=== PATIENT | male | born 1990 | race African-American/Black ===

== ENCOUNTER 2020-03-16 03:45 | Emergency (ER) | payer MEDICAID ==
[~2020-03-16] VITALS: Ht 165.1 cm; Wt 64.0 kg
[2020-03-16] MEDS ORDERED: KETOROLAC 60MG/2ML VIAL IM ONE (04:45)
[2020-03-16] MEDS ORDERED: SODIUM CHLORIDE 0.9% 1,000 ML IV ONE (05:39)
[2020-03-16] MEDS ORDERED: MORPHINE SULFATE 4 MG/ML CPJ (NOT FOR IM USE) IV SCH (05:39)
[2020-03-16] MEDS ORDERED: ONDANSETRON HCL 4MG/2ML INJ IV SCH (05:39)
[2020-03-16] MEDS ORDERED: MORPHINE SULFATE 4 MG/ML CPJ (NOT FOR IM USE) IV ONE (06:15)
[2020-03-16 09:45] VITALS: BP 125/65
== END 2020-03-16 10:04 | disposition home or self-care (01) ==
LOC: ER 03:45
DX: S82.142A Displaced bicondylar fracture of left tibia, initial encounter for closed fracture (principal); W17.89XA Other fall from one level to another, initial encounter; Y93.89 Activity, other specified; Y92.89 Other specified places as the place of occurrence of the external cause
CPT/HCPCS: 29505; 73562; 96372; 99285; J1885; J2270; J2405